=== PATIENT | male | born 1955 | race African-American/Black ===

== ENCOUNTER 2021-09-16 20:55 | Inpatient (IN) | payer MEDICARE, OTHER ==
[~2021-09-16] VITALS: Ht 172.7 cm; Wt 69.0 kg
[2021-09-16] MEDS ORDERED: ONDANSETRON HCL 4MG/2ML INJ IV STA (22:41)
[2021-09-16] MEDS ORDERED: MORPHINE SULFATE 4 MG/ML CPJ (NOT FOR IM USE) IV STA (22:41)
[2021-09-16] MEDS ORDERED: SODIUM CHLORIDE 0.9% 1,000 ML IV ONE (22:45)
[2021-09-16] MEDS ORDERED: MORPHINE SULFATE 2 MG/ML CPJ (NOT FOR IM USE) IV NR (22:52)
[2021-09-16 23:30] LABS: BASOPHILS % 0.4 % (0.0-2.0); EOSINOPHILS % 0.2 % (0.0-5.0); HEMATOCRIT. 40.4 % (42.0-52.0); HEMOGLOBIN. 13.5 g/dL (14.0-18.0); LYMPHOCYTES % 8.4 % (20.0-50.0); MEAN CORPUSCULAR HEMOGLOBIN 31.8 pg (28.0-32.0); MEAN CORPUSCULAR VOLUME 95.3 fL (80.0-94.0); MEAN PLATELET VOLUME 9.1 fl (7.4-10.4); MONOCYTES % 14.2 % (2.0-8.0); NEUTROPHILS % 76.8 % (40.0-76.0); PLATELET 318 x1000/uL (130-400); RED BLOOD CELL COUNT 4.24 mill/uL (4.7-6.1); RED CELL DISTRIBUTION WIDTH 14.2 % (11.6-14.6)
[2021-09-16 23:36] LABS: CHLORIDE 99 mEq/L (98-107)
[2021-09-17 03:46] LABS: CLARITY URINE CLEAR (CLEAR); COLOR URINE DARK YELLOW (YELLOW); KETONES URINE TRACE (NEGATIVE); LEUKOCYTE ESTERASE URINE TRACE (NEGATIVE); NITRITE URINE NEGATIVE (NEGATIVE); OCCULT BLOOD URINE NEGATIVE (NEGATIVE); PH URINE 5.5 (4.5-8.0); PROTEIN URINE 1+ (NEGATIVE); SPECIFIC GRAVITY URINE 1.021 (1.005-1.030)
[2021-09-17] MEDS ORDERED: ONDANSETRON HCL 4MG/2ML INJ IV PRN (05:45)
[2021-09-17] MEDS ORDERED: DOCUSATE SODIUM 100MG CAPSULE PO PRN (05:45)
[2021-09-17] MEDS: SODIUM CHLORIDE 0.9% 1,000 ML IV SCH ×2 (05:59→18:02)
[2021-09-17 08:33] LABS: CREATINE KINASE 66 IU/L (39-308)
[2021-09-17 08:34] LABS: CREATINE KINASE MB FRACTION < 1.0 ng/mL (0.5-3.6)
[2021-09-17 09:05] VITALS: BP 146/92
[2021-09-17 09:30] VITALS: BP 146/92
[2021-09-17] MEDS: HYDROCODONE/ACETAMINOPHEN 5/325MG TABLET PO PRN (10:03)
[2021-09-17] MEDS: ENOXAPARIN 40MG/0.4ML SYR SUBCUT SCH (10:04)
[2021-09-17 10:50] LABS: *BARBITURATES SCREEN URINE NEGATIVE (NEGATIVE); *BENZODIAZEPINES SCREEN URINE NEGATIVE (NEGATIVE); *COCAINE SCREEN URINE NEGATIVE (NEGATIVE)
[2021-09-17 10:51] LABS: *AMPHETAMINES SCREEN URINE NEGATIVE (NEGATIVE); METHADONE URINE SCREEN NEGATIVE (NEGATIVE)
[2021-09-17 10:52] LABS: CANNABINOID URINE SCREEN PRESUMTIVE POSITIVE (NEGATIVE); OPIATES URINE SCREEN PRESUMTIVE POSITIVE (NEGATIVE); PHENCYCLIDINE URINE SCREEN NEGATIVE (NEGATIVE)
[2021-09-17] MEDS ORDERED: GABA-290 PO (10:57)
[2021-09-17] MEDS ORDERED: AMLO10TA80 MT (10:57)
[2021-09-17] MEDS ORDERED: ALBU6.7H15 INH (10:57)
[2021-09-17 12:00] VITALS: BP 133/88
[2021-09-17 12:54] LABS: HEPATITIS B SURFACE ANTIGEN NEGATIVE
[2021-09-17 16:00] VITALS: BP 150/87
[2021-09-17 17:07] LABS: CREATINE KINASE 53 IU/L (39-308)
[2021-09-17 17:09] LABS: CREATINE KINASE MB FRACTION < 1.0 ng/mL (0.5-3.6)
[2021-09-17] MEDS: MORPHINE SULFATE 2 MG/ML CPJ (NOT FOR IM USE) IV PRN ×2 (18:14→23:13)
[2021-09-17 20:00] VITALS: BP 149/80
[2021-09-17] MEDS ORDERED: NALOXONE HCL 0.4MG/ML VIAL IV PRN (22:30)
[2021-09-18] MEDS: SODIUM CHLORIDE 0.9% 1,000 ML IV SCH ×2 (05:52→18:50)
[2021-09-18] MEDS: MORPHINE SULFATE 2 MG/ML CPJ (NOT FOR IM USE) IV PRN ×2 (05:54→10:00)
[2021-09-18 06:41] LABS: BASOPHILS % 0.4 % (0.0-2.0); EOSINOPHILS % 0.3 % (0.0-5.0); HEMATOCRIT. 35.2 % (42.0-52.0); HEMOGLOBIN. 11.7 g/dL (14.0-18.0); MEAN CORPUSCULAR HEMOGLOBIN 31.9 pg (28.0-32.0); MEAN CORPUSCULAR VOLUME 95.6 fL (80.0-94.0); MEAN PLATELET VOLUME 9.5 fl (7.4-10.4); MONOCYTES % 12.6 % (2.0-8.0); NEUTROPHILS % 71.7 % (40.0-76.0); PLATELET 336 x1000/uL (130-400); RED BLOOD CELL COUNT 3.68 mill/uL (4.7-6.1); RED CELL DISTRIBUTION WIDTH 14.2 % (11.6-14.6)
[2021-09-18 06:59] LABS: CHLORIDE 105 mEq/L (98-107)
[2021-09-18 07:24] LABS: LDL CHOLESTEROL 83 mg/dL (5-100)
[2021-09-18 07:27] LABS: HDL CHOLESTEROL 25 mg/dL (40-59)
[2021-09-18 08:00] VITALS: BP 165/89
[2021-09-18] MEDS: ENOXAPARIN 40MG/0.4ML SYR SUBCUT SCH (08:28)
[2021-09-18] MEDS: CLONIDINE 0.1MG TABLET PO PRN (08:28)
[2021-09-18] MEDS ORDERED: AMLODIPINE 10MG TABLET PO SCH (09:30)
[2021-09-18] MEDS: POLYETHYLENE GLYCOL 3350 (17GM) 1 DOSE PACK PO SCH (09:44)
[2021-09-18 10:46] LABS: TOTAL IRON BINDING CAPACITY 216 ug/dL (250-450)
[2021-09-18 11:03] LABS: FOLIC ACID (FOLATE) SERUM 6.6 ng/mL (>5.38)
[2021-09-18 12:00] VITALS: BP 152/93
[2021-09-18 13:06] LABS: A/G RATIO 0.5 (0.7-1.7); ALBUMIN 2.5 g/dL (2.9-4.4); ALPHA-1-GLOBULIN 0.6 g/dL (0.0-0.4); ALPHA-2-GLOBULIN 1.8 g/dL (0.4-1.0); BETA GLOBULIN 1.3 g/dL (0.7-1.3); GAMMA GLOBULINS 1.3 g/dL (0.4-1.8); M-SPIKE Not Observed g/dL (Not Observed); TOTAL PROTEIN SERUM 7.5 g/dL (6.0-8.5)
[2021-09-18] MEDS: ACETAMINOPHEN 325MG TABLET PO PRN (14:41)
[2021-09-18] MEDS: DILTIAZEM HCL 90MG TABLET PO SCH ×2 (14:43→21:03)
[2021-09-18 15:47] VITALS: BP 137/73
[2021-09-18 18:12] LABS: INR 1.1; PROTHROMBIN TIME 11.3 sec (9.6-11.0)
[2021-09-18 20:00] VITALS: BP 137/74
[2021-09-19] VITALS: BP 147/74
[2021-09-19 04:00] VITALS: BP 140/78
[2021-09-19] MEDS: DILTIAZEM HCL 90MG TABLET PO SCH ×3 (05:20→21:54)
[2021-09-19 07:27] LABS: BASOPHILS % 0.7 % (0.0-2.0); EOSINOPHILS % 0.3 % (0.0-5.0); HEMOGLOBIN. 11.6 g/dL (14.0-18.0); MEAN CORPUSCULAR HEMOGLOBIN 31.2 pg (28.0-32.0); MEAN CORPUSCULAR VOLUME 94.1 fL (80.0-94.0); MEAN PLATELET VOLUME 9.1 fl (7.4-10.4); MONOCYTES % 11.2 % (2.0-8.0); NEUTROPHILS % 67.8 % (40.0-76.0); PLATELET 402 x1000/uL (130-400); RED BLOOD CELL COUNT 3.72 mill/uL (4.7-6.1); RED CELL DISTRIBUTION WIDTH 14.3 % (11.6-14.6)
[2021-09-19 07:31] LABS: CHLORIDE 102 mEq/L (98-107)
[2021-09-19 08:00] VITALS: BP 149/83
[2021-09-19] MEDS: POLYETHYLENE GLYCOL 3350 (17GM) 1 DOSE PACK PO SCH (09:00)
[2021-09-19] MEDS ORDERED: CEFAZOLIN SODIUM 1000MG/VIAL ONE (09:55)
[2021-09-19] MEDS ORDERED: ROCURONIUM BROMIDE 10MG/ML VIAL 5ML IV ONE ×2 (09:55→10:55)
[2021-09-19] MEDS ORDERED: SUCCINYLCHOLINE CHLORIDE 200MG/10ML IV ONE (09:55)
[2021-09-19] MEDS ORDERED: FENTANYL CITRATE/PF 50MCG/ML 2ML VIAL ONE ×2 (09:55→11:02)
[2021-09-19] MEDS ORDERED: NEOSTIGMINE METHYLSULFATE 1MG/ML 10 ML VIAL ONE (09:55)
[2021-09-19] MEDS ORDERED: ONDANSETRON HCL 4MG/2ML INJ ONE (09:55)
[2021-09-19] MEDS ORDERED: DEXAMETHASONE 4MG/ML 1ML VIAL ONE (09:55)
[2021-09-19] MEDS ORDERED: MIDAZOLAM HCL 2 MG/2 ML VIAL ONE (09:55)
[2021-09-19] MEDS ORDERED: PROPOFOL 200MG/20ML VIAL IV ONE (09:55)
[2021-09-19] MEDS ORDERED: SODIUM CHLORIDE 0.9% 10ML VIAL ONE (09:55)
[2021-09-19] MEDS ORDERED: GLYCOPYRROLATE 0.2 MG/ML 2ML VIAL ONE (09:55)
[2021-09-19] MEDS ORDERED: METOCLOPRAMIDE HCL 10MG/2ML VIAL ONE (09:55)
[2021-09-19] MEDS ORDERED: PHENYLEPHRINE HCL 10 MG/ML 1ML (IV VIAL) IV ONE (09:55)
[2021-09-19] MEDS ORDERED: LIDOCAINE HCL/EPINEPHRINE 1%-EPI 1:100,000 20 ML VIAL ONE ×2 (09:56→09:57)
[2021-09-19] MEDS ORDERED: GENTAMICIN SULF 40MG/ML 2ML VIAL ONE (09:56)
[2021-09-19] MEDS ORDERED: THROMBIN (BOVINE) 5000 UNITS/VIAL TOP ONE (09:57)
[2021-09-19] MEDS ORDERED: SODIUM CHLORIDE 0.9% 1,000 ML IV ONE (13:00)
[2021-09-19] MEDS ORDERED: MEPERIDINE HCL/PF 25MG/ML CPJ IV PRN ×2 (13:00)
[2021-09-19] MEDS ORDERED: HYDROMORPHONE HCL/PF 2MG/ML CPJ IV PRN (13:00)
[2021-09-19] MEDS ORDERED: ONDANSETRON HCL 4MG/2ML INJ IV PRN (13:00)
[2021-09-19] MEDS ORDERED: MORPHINE SULFATE 2 MG/ML CPJ (NOT FOR IM USE) IV PRN (13:00)
[2021-09-19] MEDS ORDERED: LABETALOL 5MG/ML SYR 20 MG/4 ML SYRINGE IV ONE (13:24)
[2021-09-19] MEDS ORDERED: FLUMAZENIL 0.1 MG/ML 5ML VIAL IV ONE (13:24)
[2021-09-19] MEDS ORDERED: NALOXONE HCL 0.4 MG/ML 1ML VIAL ONE (13:32)
[2021-09-19] MEDS ORDERED: NALOXONE HCL 0.4 MG/ML 1ML VIAL IV ONE (13:45)
[2021-09-19] MEDS ORDERED: LABETALOL 5MG/ML SYR 20 MG/4 ML SYRINGE IV NR (13:45)
[2021-09-19] MEDS ORDERED: FLUMAZENIL 0.1 MG/ML 5ML VIAL IV NR (13:45)
[2021-09-19] MEDS ORDERED: CEFAZOLIN SODIUM 1000MG/VIAL IV SCH (14:00)
[2021-09-19] MEDS ORDERED: HYDRALAZINE 20MG/ML VIAL ONE (14:30)
[2021-09-19] MEDS ORDERED: HYDRALAZINE 20MG/ML VIAL IV PRN ×2 (14:30)
[2021-09-19 14:50] LABS: BG BASE EXCESS -5.4 mmol/L (-2.0-2.0); BG CARBOXYHEMOGLOBIN 0.3 % (0.5-1.5); BG DEOXYHEMOGLOBIN 0.7 % (0.0-5.0); BG FRACTION INSPIRED OXYGEN 49; BG HCO3 ACT 19.4 mmol/L (22.0-26.0); BG METHEMOGLOBIN 0.5 % (0.0-1.5); BG OXYGEN SATURATION 99.3 % (92.0-98.5); BG OXYHEMOGLOBIN 98.5 % (94.0-97.0); BG PCO2 35.4 mmHg (35.0-45.0); BG PH 7.357 (7.350-7.450); BG PO2 234.9 mmHg (75.0-100.0); BG SAMPLE SITE ALINE; BG TOTAL HEMOGLOBIN 11.8 g/dL (12.0-18.0); BG TOTAL RESPIRATORY RATE 28 b/min; BG VENT MODE VENT - CPAP
[2021-09-19] MEDS: CEFAZOLIN 1000MG PREMIX 50 ML IV SCH ×2 (15:00→21:25)
[2021-09-19] MEDS: HYDROCODONE/ACETAMINOPHEN 5/325MG TABLET PO PRN ×2 (18:11→22:28)
[2021-09-19 20:00] VITALS: BP 109/59
[2021-09-20] VITALS (7 sets, daily range): BP systolic 120–145; BP diastolic 56–92
[2021-09-20] MEDS: MORPHINE SULFATE 2 MG/ML CPJ (NOT FOR IM USE) IV PRN ×2 (01:15→15:02)
[2021-09-20] MEDS: FAMOTIDINE 20MG TABLET PO SCH ×3 (02:04→17:57)
[2021-09-20] MEDS: DILTIAZEM HCL 90MG TABLET PO SCH ×3 (05:46→21:00)
[2021-09-20] MEDS: CEFAZOLIN 1000MG PREMIX 50 ML IV SCH ×3 (05:47→20:58)
[2021-09-20] MEDS: HYDROCODONE/ACETAMINOPHEN 5/325MG TABLET PO PRN ×2 (05:53→21:00)
[2021-09-20 06:21] LABS: CHLORIDE 107 mEq/L (98-107)
[2021-09-20 06:32] LABS: HEMATOCRIT. 29.7 % (42.0-52.0); HEMOGLOBIN. 9.9 g/dL (14.0-18.0); MEAN CORPUSCULAR HEMOGLOBIN 31.4 pg (28.0-32.0); MEAN CORPUSCULAR VOLUME 93.9 fL (80.0-94.0); PLATELET 390 x1000/uL (130-400); RED BLOOD CELL COUNT 3.16 mill/uL (4.7-6.1)
[2021-09-20] MEDS: POLYETHYLENE GLYCOL 3350 (17GM) 1 DOSE PACK PO SCH (09:00)
[2021-09-20 18:49] LABS: PLATELET ESTIMATE NORMAL
[2021-09-20] MEDS: DEXT 5%/LACTATED RINGERS 1,000 ML IV SCH ×2 (21:15→22:30)
[2021-09-21] VITALS: BP 134/76
[2021-09-21 04:00] VITALS: BP 140/73
[2021-09-21] MEDS: HYDROCODONE/ACETAMINOPHEN 5/325MG TABLET PO PRN ×4 (04:32→22:03)
[2021-09-21] MEDS: CEFAZOLIN 1000MG PREMIX 50 ML IV SCH (05:33)
[2021-09-21] MEDS: DILTIAZEM HCL 90MG TABLET PO SCH ×2 (05:33→13:17)
[2021-09-21] MEDS: DEXT 5%/LACTATED RINGERS 1,000 ML IV SCH ×3 (05:34→21:36)
[2021-09-21 07:55] LABS: BASOPHILS % 0.5 % (0.0-2.0); HEMATOCRIT. 29.5 % (42.0-52.0); HEMOGLOBIN. 9.8 g/dL (14.0-18.0); LYMPHOCYTES % 12.5 % (20.0-50.0); MEAN CORPUSCULAR HEMOGLOBIN 31.2 pg (28.0-32.0); MEAN CORPUSCULAR VOLUME 94.2 fL (80.0-94.0); MEAN PLATELET VOLUME 8.8 fl (7.4-10.4); MONOCYTES % 9.8 % (2.0-8.0); NEUTROPHILS % 77.2 % (40.0-76.0); PLATELET 427 x1000/uL (130-400); RED BLOOD CELL COUNT 3.13 mill/uL (4.7-6.1); RED CELL DISTRIBUTION WIDTH 14.1 % (11.6-14.6)
[2021-09-21 08:00] VITALS: BP 157/67
[2021-09-21 08:03] LABS: CHLORIDE 106 mEq/L (98-107)
[2021-09-21] MEDS: POLYETHYLENE GLYCOL 3350 (17GM) 1 DOSE PACK PO SCH ×2 (08:30→21:00)
[2021-09-21] MEDS: FAMOTIDINE 20MG TABLET PO SCH ×2 (08:30→17:20)
[2021-09-21 12:00] VITALS: BP 151/88
[2021-09-21 16:00] VITALS: BP 113/49
[2021-09-21] MEDS: LACTULOSE 20G/30ML UDC PO SCH ×3 (16:32→21:00)
[2021-09-21] MEDS: ACETAMINOPHEN 325MG TABLET PO PRN (17:21)
[2021-09-21 20:00] VITALS: BP 137/69
[2021-09-21] MEDS: DILTIAZEM HCL 60MG TABLET PO SCH (22:01)
[2021-09-22] VITALS: BP 114/74
[2021-09-22] MEDS: HYDROCODONE/ACETAMINOPHEN 5/325MG TABLET PO PRN ×4 (03:22→21:56)
[2021-09-22 04:00] VITALS: BP 150/83
[2021-09-22] MEDS: DEXT 5%/LACTATED RINGERS 1,000 ML IV SCH ×3 (05:04→21:57)
[2021-09-22] MEDS: DILTIAZEM HCL 60MG TABLET PO SCH ×3 (05:40→21:57)
[2021-09-22] MEDS: ACETAMINOPHEN 325MG TABLET PO PRN ×3 (05:42→15:25)
[2021-09-22 07:53] LABS: BASOPHILS % 0.6 % (0.0-2.0); EOSINOPHILS % 0.3 % (0.0-5.0); HEMATOCRIT. 31.8 % (42.0-52.0); HEMOGLOBIN. 10.5 g/dL (14.0-18.0); LYMPHOCYTES % 18.7 % (20.0-50.0); MEAN CORPUSCULAR VOLUME 93.5 fL (80.0-94.0); MEAN PLATELET VOLUME 8.7 fl (7.4-10.4); MONOCYTES % 9.6 % (2.0-8.0); NEUTROPHILS % 70.8 % (40.0-76.0); PLATELET 427 x1000/uL (130-400); RED CELL DISTRIBUTION WIDTH 13.8 % (11.6-14.6)
[2021-09-22 08:00] VITALS: BP_SYST 101; BP_SYST 139; BP_DIAS 65; BP_DIAS 69
[2021-09-22 08:02] LABS: CHLORIDE 101 mEq/L (98-107)
[2021-09-22] MEDS: POLYETHYLENE GLYCOL 3350 (17GM) 1 DOSE PACK PO SCH ×2 (08:53→21:00)
[2021-09-22] MEDS: FAMOTIDINE 20MG TABLET PO SCH ×2 (08:53→17:57)
[2021-09-22 12:00] VITALS: BP 139/69
[2021-09-22 16:00] VITALS: BP 155/76
[2021-09-22 20:00] VITALS: BP 132/74
[2021-09-23] VITALS: BP 140/72
[2021-09-23] MEDS: ACETAMINOPHEN 325MG TABLET PO PRN ×3 (01:15→16:23)
[2021-09-23] MEDS: HYDROCODONE/ACETAMINOPHEN 5/325MG TABLET PO PRN ×4 (02:20→20:30)
[2021-09-23 04:00] VITALS: BP 106/79
[2021-09-23] MEDS: DEXT 5%/LACTATED RINGERS 1,000 ML IV SCH ×3 (05:11→22:30)
[2021-09-23] MEDS: DILTIAZEM HCL 60MG TABLET PO SCH ×3 (05:15→20:29)
[2021-09-23] MEDS: FAMOTIDINE 20MG TABLET PO SCH ×2 (08:53→16:22)
[2021-09-23] MEDS: POLYETHYLENE GLYCOL 3350 (17GM) 1 DOSE PACK PO SCH ×2 (08:53→20:27)
[2021-09-23] MEDS ORDERED: BISACODYL 10MG SUPP PR NR (12:00)
[2021-09-23 15:47] VITALS: BP 116/61
[2021-09-23 20:00] VITALS: BP 137/69
[2021-09-24] VITALS: BP 134/62
[2021-09-24] MEDS: CAPSAICIN 0.025% CREAM 60GM TOP PRN ×2 (00:07→06:06)
[2021-09-24] MEDS: HYDROCODONE/ACETAMINOPHEN 5/325MG TABLET PO PRN ×4 (00:27→14:13)
[2021-09-24 04:00] VITALS: BP 138/81
[2021-09-24] MEDS: DEXT 5%/LACTATED RINGERS 1,000 ML IV SCH ×2 (05:48→14:30)
[2021-09-24] MEDS: DILTIAZEM HCL 60MG TABLET PO SCH ×3 (06:01→22:00)
[2021-09-24] MEDS: ACETAMINOPHEN 325MG TABLET PO PRN (06:05)
[2021-09-24 08:00] VITALS: BP 141/63
[2021-09-24] MEDS: POLYETHYLENE GLYCOL 3350 (17GM) 1 DOSE PACK PO SCH ×2 (09:00→21:00)
[2021-09-24] MEDS: FAMOTIDINE 20MG TABLET PO SCH ×2 (09:19→17:11)
[2021-09-24 12:00] VITALS: BP 139/74
[2021-09-24] MEDS: MAGNESIUM/ALUMINUM HYDROXIDE/SIMETHICONE 30ML UDC PO PRN (14:15)
[2021-09-24] MEDS: LACTULOSE 20G/30ML UDC PO SCH ×2 (17:00→21:00)
[2021-09-24 20:00] VITALS: BP 146/77
[2021-09-25] VITALS: BP 143/77
[2021-09-25 04:00] VITALS: BP 155/80
[2021-09-25] MEDS: DILTIAZEM HCL 60MG TABLET PO SCH ×4 (05:47→21:59)
[2021-09-25] MEDS: DEXT 5%/LACTATED RINGERS 1,000 ML IV SCH ×2 (06:30→14:30)
[2021-09-25 08:00] VITALS: BP 157/92
[2021-09-25] MEDS: LACTULOSE 20G/30ML UDC PO SCH (09:00)
[2021-09-25] MEDS: POLYETHYLENE GLYCOL 3350 (17GM) 1 DOSE PACK PO SCH ×2 (09:00→21:00)
[2021-09-25] MEDS: HYDROCODONE/ACETAMINOPHEN 5/325MG TABLET PO PRN ×3 (09:13→23:20)
[2021-09-25] MEDS: FAMOTIDINE 20MG TABLET PO SCH ×2 (09:13→17:55)
[2021-09-25] MEDS: CLONIDINE 0.1MG TABLET PO PRN ×2 (09:13→14:38)
[2021-09-25] MEDS: ACETAMINOPHEN 325MG TABLET PO PRN (11:29)
[2021-09-25] MEDS: MAGNESIUM/ALUMINUM HYDROXIDE/SIMETHICONE 30ML UDC PO PRN (11:29)
[2021-09-25] MEDS: CAPSAICIN 0.025% CREAM 60GM TOP PRN (11:30)
[2021-09-25 12:00] VITALS: BP 170/100
[2021-09-25 16:00] VITALS: BP 108/60
[2021-09-25 20:00] VITALS: BP 123/68
[2021-09-26] VITALS: BP_SYST 116; BP_SYST 156; BP_DIAS 71; BP_DIAS 96
[2021-09-26] MEDS: ACETAMINOPHEN 325MG TABLET PO PRN (02:32)
[2021-09-26] MEDS: CAPSAICIN 0.025% CREAM 60GM TOP PRN (02:32)
[2021-09-26] MEDS: HYDROCODONE/ACETAMINOPHEN 5/325MG TABLET PO PRN ×4 (03:33→19:17)
[2021-09-26 04:00] VITALS: BP 131/64
[2021-09-26] MEDS: DILTIAZEM HCL 60MG TABLET PO SCH ×3 (06:18→21:50)
[2021-09-26 08:00] VITALS: BP 130/71
[2021-09-26] MEDS: FAMOTIDINE 20MG TABLET PO SCH ×2 (08:34→16:18)
[2021-09-26] MEDS: POLYETHYLENE GLYCOL 3350 (17GM) 1 DOSE PACK PO SCH ×2 (08:36→21:00)
[2021-09-26 12:00] VITALS: BP 131/69
[2021-09-26] MEDS: DEXT 5%/LACTATED RINGERS 1,000 ML IV SCH ×2 (13:50→21:50)
[2021-09-26 16:00] VITALS: BP 129/73
[2021-09-26 20:00] VITALS: BP 126/72
[2021-09-27] VITALS: BP 113/63
[2021-09-27] MEDS: HYDROCODONE/ACETAMINOPHEN 5/325MG TABLET PO PRN ×3 (00:20→09:13)
[2021-09-27] MEDS: ACETAMINOPHEN 325MG TABLET PO PRN ×2 (02:55→11:51)
[2021-09-27 04:00] VITALS: BP 123/73
[2021-09-27] MEDS: MAGNESIUM/ALUMINUM HYDROXIDE/SIMETHICONE 30ML UDC PO PRN (04:54)
[2021-09-27] MEDS: DILTIAZEM HCL 60MG TABLET PO SCH ×3 (06:26→13:53)
[2021-09-27 08:00] VITALS: BP 132/71
[2021-09-27] MEDS: POLYETHYLENE GLYCOL 3350 (17GM) 1 DOSE PACK PO SCH (09:00)
[2021-09-27] MEDS: FAMOTIDINE 20MG TABLET PO SCH (09:12)
[2021-09-27] MEDS: CLONIDINE 0.1MG TABLET PO PRN (09:13)
[2021-09-27 12:00] VITALS: BP 131/76
[2021-09-27] MEDS ORDERED: FAMO20TA8 PO (13:14)
[2021-09-27] MEDS ORDERED: DILT60TA35 PO (13:14)
[2021-09-27] MEDS: DEXT 5%/LACTATED RINGERS 1,000 ML IV SCH (13:55)
[2021-09-27] MEDS ORDERED: HYDR-4001 PO (14:29)
[2021-09-27 15:21] VITALS: BP 131/76
== END 2021-09-27 16:40 | disposition home health service (06) | DRG 518 ==
LOC: ER 20:55 → 6EST 09-17 03:13 → EDBEDREQTM 09-17 03:16 → EDBEDREQ 09-17 03:16 → ENRESERV 09-17 07:48
PROVIDERS: ADMIT Internal Medicine; ATTEND Internal Medicine
PROC: 00NY0ZZ Release Lumbar Spinal Cord, Open Approach (ICD-10-PCS; principal; 2021-09-19)
PROC: 01NB0ZZ Release Lumbar Nerve, Open Approach (ICD-10-PCS; 2021-09-19)
PROC: 4A11X4G Monitoring of Peripheral Nervous Electrical Activity, Intraoperative, External Approach (ICD-10-PCS; 2021-09-19)
DX: M48.061 Spinal stenosis, lumbar region without neurogenic claudication (principal); N17.0 Acute kidney failure with tubular necrosis; E44.0 Moderate protein-calorie malnutrition; G82.22 Paraplegia, incomplete; G95.20 Unspecified cord compression; E87.2 Acidosis; B19.20 Unspecified viral hepatitis C without hepatic coma; D53.9 Nutritional anemia, unspecified; D72.821 Monocytosis (symptomatic); E11.9 Type 2 diabetes mellitus without complications; E78.1 Pure hyperglyceridemia; E86.0 Dehydration; F03.90 Unspecified dementia, unspecified severity, without behavioral disturbance, psychotic disturbance, mood disturbance, and anxiety; F17.210 Nicotine dependence, cigarettes, uncomplicated; I10 Essential (primary) hypertension; M06.9 Rheumatoid arthritis, unspecified; G89.29 Other chronic pain; Z20.822 Contact with and (suspected) exposure to COVID-19; M10.9 Gout, unspecified; Z74.01 Bed confinement status; Z82.49 Family history of ischemic heart disease and other diseases of the circulatory system; Z86.73 Personal history of transient ischemic attack (TIA), and cerebral infarction without residual deficits; Z88.2 Allergy status to sulfonamides; Z79.899 Other long term (current) drug therapy; Z68.23 Body mass index [BMI] 23.0-23.9, adult; S43.004A Unspecified dislocation of right shoulder joint, initial encounter; F12.90 Cannabis use, unspecified, uncomplicated
CPT/HCPCS: 36415; 36600; 70551; 71045; 72100; 72131; 72141; 72146; 72148; 73030; 73502; 76000; 76705; 77075; 80048; 80053; 80061; 80305; 81003; 82375; 82550; 82553; 82607; 82728; 82746; 82805; 83036; 83540; 83550; 83605; 84155; 84165; 84443; 84484; 85025; 86705; 86709; 86803; 86850; 86900; 87340; 87426; 88305; 88311; 93005; 93306; 94002; 95863; 95925; 95926; 95928; 95929; 95940; 97116; 97162; 97166; 97530; 97760; 99285; J0330; J0360; J0690; J1100; J1580; J1650; J2250; J2270; J2310; J2370; J2405; J2704; J2710; J2765; J3010; J3490; J7030; J7121

== ENCOUNTER 2022-09-21 13:51 | Emergency (ER) | payer MEDICARE ==
[~2022-09-21] VITALS: Ht 175.3 cm; Wt 68.0 kg
[~2022-09-21 13:51] MED LIST: ALBU6.7H15 INH; DILT60TA35 PO; FAMO20TA8 PO; GABA-290 PO; HYDR-4001 PO
[2022-09-21 15:47] LABS: HEMATOCRIT. 34.5 % (42.0-52.0); HEMOGLOBIN. 11.6 g/dL (14.0-18.0); MEAN CORPUSCULAR HEMOGLOBIN 32.2 pg (28.0-32.0); MEAN CORPUSCULAR VOLUME 95.3 fL (80.0-94.0); MEAN PLATELET VOLUME 8.7 fl (7.4-10.4); PLATELET 271 x1000/uL (130-400); RED BLOOD CELL COUNT 3.62 mill/uL (4.7-6.1); RED CELL DISTRIBUTION WIDTH 14.7 % (11.6-14.6)
[2022-09-21 17:43] LABS: PLATELET ESTIMATE NORMAL
[2022-09-21] MEDS ORDERED: IBUP-2029 MT (18:50)
[2022-09-21] MEDS ORDERED: ALBU6.7H3 INH (19:05)
[2022-09-21 19:33] VITALS: BP 124/71
== END 2022-09-21 19:40 | disposition home or self-care (01) ==
LOC: ER 13:54
DX: M24.411 Recurrent dislocation, right shoulder (principal); R00.0 Tachycardia, unspecified; J45.909 Unspecified asthma, uncomplicated; R07.9 Chest pain, unspecified; M10.9 Gout, unspecified; F03.90 Unspecified dementia, unspecified severity, without behavioral disturbance, psychotic disturbance, mood disturbance, and anxiety; I10 Essential (primary) hypertension; Z88.2 Allergy status to sulfonamides
CPT/HCPCS: 36415; 71045; 73030; 85025; 93005; 99285

== ENCOUNTER 2023-06-08 19:49 | Emergency (ER) | payer BC ==
[~2023-06-08] VITALS: Ht 170.2 cm; Wt 75.0 kg
[2023-06-08 19:50] VITALS: BP 155/92; PULSE 92; RESP 18; TEMP 97.8; O2SAT 99
== END 2023-06-08 22:04 | disposition home or self-care (01) ==
LOC: ER 19:49
DX: R41.82 Altered mental status, unspecified (principal)
CPT/HCPCS: 99283

== ENCOUNTER 2024-03-28 15:11 | Emergency (ER) | payer BC, MEDICARE ==
[~2024-03-28] VITALS: Ht 170.2 cm; Wt 65.0 kg
[2024-03-28 15:18] VITALS: BP 160/101; PULSE 99; RESP 16; TEMP 98.4; O2SAT 98
== END 2024-03-28 17:30 | disposition left against medical advice (07) ==
LOC: ER 15:11
DX: F10.129 Alcohol abuse with intoxication, unspecified (principal); I10 Essential (primary) hypertension; Z88.2 Allergy status to sulfonamides; Y90.9 Presence of alcohol in blood, level not specified
CPT/HCPCS: 93005; 99283

== ENCOUNTER 2025-01-21 15:42 | Emergency (ER) | payer BC, MEDICARE ==
[~2025-01-21] VITALS: Ht 170.2 cm; Wt 73.0 kg
[2025-01-21 15:55] VITALS: O2SAT 97
[2025-01-21] MEDS: OXYCODONE HCL/ACETAMINOPHEN 5/325MG TABLET PO ONE (16:20)
[2025-01-21 17:28] LABS: HEMATOCRIT. 32.9 % (42.0-52.0); HEMOGLOBIN. 10.5 g/dL (14.0-18.0); MEAN CORPUSCULAR HEMOGLOBIN 30.2 pg (28.0-32.0); MEAN CORPUSCULAR HGB CONC 31.9 g/dL (31.0-37.0); MEAN CORPUSCULAR VOLUME 94.7 fL (80.0-94.0); MEAN PLATELET VOLUME 9.1 fl (7.4-10.4); PLATELET 185 x1000/uL (130-400); RED BLOOD CELL COUNT 3.48 mill/uL (4.7-6.1); RED CELL DISTRIBUTION WIDTH 15.5 % (11.6-14.6); WHITE BLOOD COUNT 6.3 x1000/uL (4.5-11.0)
[2025-01-21 17:35] LABS: DIFFERENTIAL COMMENT 1
[2025-01-21 17:36] LABS: CHLORIDE 104 mEq/L (98-107); POTASSIUM 3.6 mEq/L (3.5-5.1); SODIUM 138 mEq/L (136-145)
[2025-01-21 17:37] LABS: CALCIUM 9.3 mg/dL (8.7-10.4); CARBON DIOXIDE 24 mEq/L (21-32)
[2025-01-21 17:42] LABS: GLUCOSE 107 mg/dL (70-105); UREA NITROGEN BLOOD 15 mg/dL (9-23)
[2025-01-21 17:44] LABS: TROPONIN I HIGH SENSITIVITY 6 ng/L (3.0-53)
[2025-01-21 17:55] LABS: CREATININE 1.5 mg/dL (0.6-1.3)
[2025-01-21 17:56] LABS: PROTHROMBIN TIME 10.9 sec (9.6-11.0)
[2025-01-21] MEDS ORDERED: OXYC-105 MT (18:01)
[2025-01-21] MEDS ORDERED: MAGN400C MT (18:07)
[2025-01-21] MEDS ORDERED: B50 MT (18:08)
[2025-01-21] MEDS: DIPHENHYDRAMINE 25MG CAPSULE PO ONE (18:20)
[2025-01-21 18:30] VITALS: BP 145/82; PULSE 67; RESP 18; TEMP 36.6; O2SAT 100
[2025-01-21] MEDS: MAGNESIUM OXIDE 400MG TABLET PO ONE (18:30)
[2025-01-21 21:11] LABS: ANISOCYTOSIS 1+; PLATELET ESTIMATE NORMAL
== END 2025-01-21 18:30 | disposition home or self-care (01) ==
LOC: ER 15:42
DX: R55 Syncope and collapse (principal); E83.42 Hypomagnesemia; G89.29 Other chronic pain; M54.9 Dorsalgia, unspecified; R79.89 Other specified abnormal findings of blood chemistry; E11.9 Type 2 diabetes mellitus without complications; I10 Essential (primary) hypertension; Z88.2 Allergy status to sulfonamides; Z98.1 Arthrodesis status
CPT/HCPCS: 99284; 80048; 82962; 83880; 83735; 85025; 85610; 84484; 36415; 93005; Q0163

== ENCOUNTER 2025-08-07 14:57 | Emergency (ER) | payer BC, MEDICARE, OTHER ==
[~2025-08-07] VITALS: Ht 170.2 cm; Wt 65.0 kg
[~2025-08-07 14:57] MED LIST changes: -ALBU6.7H15 INH; -DILT60TA35 PO; +DIPH50CA42 MT; -FAMO20TA8 PO; -GABA-290 PO; -HYDR-4001 PO; +MAGN400C MT; +OXYC-105 MT
[2025-08-07 15:00] VITALS: TEMP 37.1; O2SAT 99
[2025-08-07 15:11] VITALS: PULSE 132; RESP 22; O2SAT 100
[2025-08-07] MEDS: ALBUTEROL (0.083%) 2.5MG/3ML NEB HHN SCH (15:11)
[2025-08-07] MEDS: IPRATROPIUM BROMIDE (0.02%) 0.5MG/2.5ML NEB HHN SCH (15:12)
[2025-08-07] MEDS: MAGNESIUM 2 G PREMIX 50 ML IV ONE (15:17)
[2025-08-07] MEDS: SODIUM CHLORIDE 0.9% 1,000 ML IV ONE (15:18)
[2025-08-07] MEDS: METHYLPREDNISOLONE SOD SUCC 125MG/2ML (ACT-O-VIAL) IV ONE (15:18)
[2025-08-07 15:36] LABS: BASOPHILS % 0.4 % (0.0-2.0); EOSINOPHILS % 0.6 % (0.0-5.0); HEMATOCRIT. 33.8 % (42.0-52.0); HEMOGLOBIN. 10.8 g/dL (14.0-18.0); LYMPHOCYTES % 32.1 % (20.0-50.0); MEAN PLATELET VOLUME 9.0 fl (7.4-10.4); MONOCYTES % 8.0 % (2.0-8.0); NEUTROPHILS % 58.9 % (40.0-76.0); PLATELET 265 x1000/uL (130-400); RED BLOOD CELL COUNT 3.69 mill/uL (4.7-6.1); RED CELL DISTRIBUTION WIDTH 17.0 % (11.6-14.6)
[2025-08-07 15:45] VITALS: BP 225/116
[2025-08-07] MEDS: LABETALOL 5MG/ML 4ML INJ IV ONE (15:45)
[2025-08-07 15:46] LABS: INR 1.0
[2025-08-07 15:53] LABS: CREATININE 1.3 mg/dL (0.6-1.3); UREA NITROGEN BLOOD 15 mg/dL (9-23)
[2025-08-07 15:55] LABS: ASPARTATE AMINOTRANSFERASE 45 IU/L (<34); BILIRUBIN DIRECT 0.2 mg/dL (<=3.0); BILIRUBIN TOTAL 0.4 mg/dL (0.1-1.0); PROTEIN TOTAL 7.9 g/dL (6.0-8.3)
[2025-08-07 15:58] LABS: TROPONIN I HIGH SENSITIVITY 62 ng/L (3.0-53)
[2025-08-07] MEDS: POTASSIUM CHLORIDE 20MEQ TABLET SR PO ONE (16:04)
[2025-08-07] MEDS ORDERED: KETOROLAC 30MG/ML VIAL IV ONE (16:15)
[2025-08-07] MEDS ORDERED: KCL 10MEQ/50ML PREMIX 50 ML IV SCH (16:15)
== END 2025-08-07 16:30 | disposition left against medical advice (07) ==
LOC: ER 14:57 → CMPBEDREQ 17:17
DX: R06.02 Shortness of breath (principal); E11.9 Type 2 diabetes mellitus without complications; F17.200 Nicotine dependence, unspecified, uncomplicated; I10 Essential (primary) hypertension; F12.90 Cannabis use, unspecified, uncomplicated; I48.91 Unspecified atrial fibrillation; Z53.29 Procedure and treatment not carried out because of patient's decision for other reasons; Z98.890 Other specified postprocedural states; Z88.2 Allergy status to sulfonamides
CPT/HCPCS: 80076; 80048; 80320; 83880; 83735; 85025; 85610; 85730; 84484; 36415; 71045; 93005; 94644; 96365; 96375; 99291; J3490; J3475; J2919; J7030; 94640; 94664; G0480

== ENCOUNTER 2025-08-29 02:25 | Inpatient (IN) | payer MEDICARE, OTHER ==
[~2025-08-29] VITALS: Ht 172.7 cm; Wt 68.0 kg
[2025-08-29] MEDS ORDERED: ALBUTEROL (0.083%) 2.5MG/3ML NEB HHN ONE (03:15)
[2025-08-29] MEDS ORDERED: IPRATROPIUM BROMIDE (0.02%) 0.5MG/2.5ML NEB HHN ONE (03:15)
[2025-08-29 03:28] LABS: BASOPHILS % 0.2 % (0.0-2.0); EOSINOPHILS % 0.1 % (0.0-5.0); HEMATOCRIT. 28.0 % (42.0-52.0); HEMOGLOBIN. 9.0 g/dL (14.0-18.0); LYMPHOCYTES % 29.7 % (20.0-50.0); MEAN PLATELET VOLUME 9.1 fl (7.4-10.4); MONOCYTES % 5.2 % (2.0-8.0); NEUTROPHILS % 64.8 % (40.0-76.0); PLATELET 152 x1000/uL (130-400); RED BLOOD CELL COUNT 3.07 mill/uL (4.7-6.1); RED CELL DISTRIBUTION WIDTH 16.7 % (11.6-14.6)
[2025-08-29 03:42] LABS: CREATININE 1.8 mg/dL (0.6-1.3); UREA NITROGEN BLOOD 30 mg/dL (9-23)
[2025-08-29 03:48] LABS: TROPONIN I HIGH SENSITIVITY 175 ng/L (3.0-53)
[2025-08-29] MEDS: METHYLPREDNISOLONE SOD SUCC 125MG/2ML (ACT-O-VIAL) IV ONE (04:03)
[2025-08-29 05:36] LABS: TROPONIN I HIGH SENSITIVITY 162 ng/L (3.0-53)
[2025-08-29 06:19] VITALS: PULSE 73; RESP 16; O2SAT 98
[2025-08-29] MEDS: ALBUTEROL (0.083%) 2.5MG/3ML NEB HHN NR (06:19)
[2025-08-29] MEDS: IPRATROPIUM BROMIDE (0.02%) 0.5MG/2.5ML NEB HHN NR (06:19)
[2025-08-29] MEDS: MAGNESIUM 4 G PREMIX 100 ML IV NR (06:20)
[2025-08-29] MEDS: THIAMINE HCL 100MG TABLET PO SCH (09:45)
[2025-08-29] MEDS: FERROUS SULFATE 325MG TABLET PO SCH (09:45)
[2025-08-29] MEDS ORDERED: CLONIDINE 0.1MG TABLET PO PRN (09:45)
[2025-08-29] MEDS ORDERED: LORAZEPAM 0.5MG TABLET PO PRN (09:45)
[2025-08-29] MEDS ORDERED: GUAIFENESIN 200MG/10ML SUGAR FREE UDC PO PRN (09:45)
[2025-08-29] MEDS: AMLODIPINE 10MG TABLET PO SCH (09:45)
[2025-08-29] MEDS ORDERED: ACETAMINOPHEN 325MG TABLET PO PRN ×2 (09:45)
[2025-08-29] MEDS ORDERED: ONDANSETRON HCL 4MG/2ML INJ IV PRN (09:45)
[2025-08-29] MEDS ORDERED: DOCUSATE SODIUM 100MG CAPSULE PO PRN (09:45)
[2025-08-29] MEDS ORDERED: NALOXONE HCL 0.4MG/ML VIAL IV PRN (10:00)
[2025-08-29] MEDS: PANTOPRAZOLE 40MG DR TABLET PO SCH (10:00)
[2025-08-29] MEDS ORDERED: HYDRALAZINE 20MG/ML VIAL IV SCH (10:00)
[2025-08-29] MEDS: CLONIDINE 0.1MG TABLET PO NR (10:15)
[2025-08-29] MEDS: FUROSEMIDE 40MG/4ML VIAL IVP SCH (10:30)
[2025-08-29 12:00] VITALS: BP 136/74; PULSE 88; RESP 18; TEMP 36.6; O2SAT 98
[2025-08-29] MEDS ORDERED: IOHEXOL-350 100 ML BOTTLE ONE (13:02)
[2025-08-29 14:44] VITALS: BP 144/88
[2025-08-29] MEDS: HYDROCODONE/ACETAMINOPHEN 5/325MG TABLET PO PRN (14:44)
[2025-08-29] MEDS ORDERED: DEXTROSE 50% WATER 50ML SYRINGE IV PRN (15:15)
[2025-08-29 15:19] VITALS: PULSE 104; RESP 18; O2SAT 100
[2025-08-29] MEDS: ENOXAPARIN 30MG/0.3ML SYR SUBCUT SCH (15:30)
[2025-08-29] MEDS: IPRATROPIUM/ALBUTEROL 0.5-3(2.5)MG/3ML NEB HHN PRN (16:05)
[2025-08-29] MEDS: BLOOD SUGAR DIAGNOSTIC STRIP TEST SCH (17:20)
[2025-08-29] MEDS: INSULIN LISPRO 100 UNITS/ML SUBCUT SCH (17:50)
[2025-08-29] MEDS ORDERED: NITROGLYCERIN 0.4MG TABLET SL SL PRN (18:30)
[2025-08-29] MEDS ORDERED: HYDRALAZINE 20MG/ML VIAL IV PRN (18:45)
[2025-08-29] MEDS ORDERED: ATORVASTATIN CALCIUM 40MG TABLET PO SCH (21:00)
[2025-08-30] MEDS ORDERED: ASPIRIN 81MG EC TABLET PO SCH (09:00)
[2025-08-30] MEDS ORDERED: MAGNESIUM OXIDE 400MG TABLET PO SCH (09:00)
== END 2025-08-29 18:45 | disposition left against medical advice (07) | DRG 189 ==
LOC: ER 02:25 → 6WST 05:07 → EDBEDREQTM 05:13 → EDBEDREQ 05:13 → ENRESERV 10:01
PROVIDERS: ADMIT Internal Medicine; ATTEND Internal Medicine
DX: J96.01 Acute respiratory failure with hypoxia (principal); I21.A1 Myocardial infarction type 2; J44.1 Chronic obstructive pulmonary disease with (acute) exacerbation; I50.32 Chronic diastolic (congestive) heart failure; I47.10 Supraventricular tachycardia, unspecified; I16.1 Hypertensive emergency; N17.9 Acute kidney failure, unspecified; I13.0 Hypertensive heart and chronic kidney disease with heart failure and stage 1 through stage 4 chronic kidney disease, or unspecified chronic kidney disease; K21.9 Gastro-esophageal reflux disease without esophagitis; N18.9 Chronic kidney disease, unspecified; E83.42 Hypomagnesemia; D64.9 Anemia, unspecified; E11.22 Type 2 diabetes mellitus with diabetic chronic kidney disease; I48.91 Unspecified atrial fibrillation; J45.909 Unspecified asthma, uncomplicated; Z53.29 Procedure and treatment not carried out because of patient's decision for other reasons; Z79.899 Other long term (current) drug therapy; Z86.73 Personal history of transient ischemic attack (TIA), and cerebral infarction without residual deficits; Z88.2 Allergy status to sulfonamides; Z99.3 Dependence on wheelchair; Z91.199 Patient's noncompliance with other medical treatment and regimen due to unspecified reason
CPT/HCPCS: 36415; 71045; 71275; 76770; 80048; 82962; 83036; 83735; 83880; 84484; 85025; 85379; 93005; 93970; 94070; 94640; 96374; 99291; A4606; J2919; J3475; Q9967